=== PATIENT | male | born 1990 | race African-American/Black ===

== ENCOUNTER 2021-11-24 21:05 | Observation (INO) | payer BC, OTHER ==
[~2021-11-24] VITALS: Ht 170.2 cm; Wt 82.3 kg
[2021-11-24] MEDS ORDERED: ONDANSETRON 4MG INJ ONE (21:28)
[2021-11-24] MEDS ORDERED: CEFAZOLIN SODIUM 1 GM VIAL IVP SCH (21:30)
[2021-11-24] MEDS ORDERED: TETANUS/DIPHTHERIA TOXOID [ADULT] 0.5 ML VIAL IM ONE ×2 (21:30→22:30)
[2021-11-24] MEDS ORDERED: MORPHINE 4 MG SYG IVP ONE ×2 (21:30→22:00)
[2021-11-24] MEDS ORDERED: ACETAMINOPHEN WITH CODEINE 1 TAB TAB PO PRN (22:00)
[2021-11-24] MEDS ORDERED: ACETAMINOPHEN 325 MG TAB PO PRN ×2 (22:00)
[2021-11-24] MEDS ORDERED: ONDANSETRON 4MG INJ IV PRN (22:00)
[2021-11-24 22:21] LABS: BASOPHILS % (AUTO) 0.5 % (0.0-5.0); EOSINOPHILS % (AUTO) 1.9 % (0.0-8.0); HEMATOCRIT 46.6 % (42-54); LYMPHOCYTES % (AUTO) 25.7 % (21.0-51.0); MEAN CORPUSCULAR HEMOGLOBIN 27.8 pg (27.0-33.0); MEAN CORPUSCULAR HGB CONC 33.7 g/dL (32.0-36.0); MEAN CORPUSCULAR VOLUME 82.5 fL (79-99); MONOCYTES % (AUTO) 5.4 % (3.0-13.0); PLATELET COUNT (AUTO) 272 K/uL (130-400); RED BLOOD CELL COUNT(AUTO) 5.65 MIL/uL (4.50-6.20); RED CELL DISTRIBUTION WIDTH 13.2 % (11.0-15.5); WHITE BLOOD COUNT (AUTO) 11.8 K/uL (4.8-10.8)
[2021-11-24] MEDS ORDERED: ONDANSETRON 4MG INJ IVP ONE (22:30)
[2021-11-24 22:40] LABS: INR 0.97 (0.85-1.15); PROTHROMBIN TIME 10.6 SEC (9.6-11.6)
[2021-11-24 22:41] LABS: PARTIAL THROMBOPLASTIN TIME 22.8 SEC (26.3-35.5)
[2021-11-24 22:43] LABS: ALBUMIN 4.1 g/dL (3.5-5.0); BILIRUBIN,TOTAL 0.4 mg/dL (0.2-1.0); POTASSIUM 3.3 mmol/L (3.5-5.1)
[2021-11-24 23:12] LABS: CREATININE 1.5 mg/dL (0.5-1.5)
[2021-11-24 23:30] VITALS: BP 105/72
[2021-11-24] MEDS ORDERED: KCL 20 MEQ ERTAB PO ONE (23:30)
[2021-11-24] MEDS: MORPHINE 2 MG SYG IVP PRN (23:49)
[2021-11-25] VITALS (17 sets, daily range): BP systolic 95–122; BP diastolic 50–87
[2021-11-25] MEDS: CEFAZOLIN SODIUM 1 GM VIAL IVP SCH ×3 (04:12→19:34)
[2021-11-25 04:37] LABS: AMPHET/METH SCREEN,URINE NEGATIVE (NEGATIVE); BARBITURATE SCREEN, URINE NEGATIVE (NEGATIVE); BENZODIAZEPINES SCREEN,URINE NEGATIVE (NEGATIVE); CANNABINOID SCREEN,URINE NEGATIVE (NEGATIVE); COCAINE SCREEN,URINE NEGATIVE (NEGATIVE); OPIATE SCREEN,URINE POSITIVE (NEGATIVE); PHENCYCLIDINE SCREEN,URINE NEGATIVE (NEGATIVE)
[2021-11-25] MEDS: MORPHINE 2 MG SYG IVP PRN ×3 (06:37→19:34)
[2021-11-25 06:51] LABS: BASOPHILS % (AUTO) 0.4 % (0.0-5.0); EOSINOPHILS % (AUTO) 2.6 % (0.0-8.0); HEMATOCRIT 45.3 % (42-54); LYMPHOCYTES % (AUTO) 17.4 % (21.0-51.0); MEAN CORPUSCULAR HEMOGLOBIN 27.6 pg (27.0-33.0); MEAN CORPUSCULAR HGB CONC 32.9 g/dL (32.0-36.0); MONOCYTES % (AUTO) 7.5 % (3.0-13.0); NEUTROPHILS % (AUTO) 71.8 % (40.0-77.0); PLATELET COUNT (AUTO) 269 K/uL (130-400); RED BLOOD CELL COUNT(AUTO) 5.39 MIL/uL (4.50-6.20); RED CELL DISTRIBUTION WIDTH 13.4 % (11.0-15.5); WHITE BLOOD COUNT (AUTO) 13.3 K/uL (4.8-10.8)
[2021-11-25 07:13] LABS: ALBUMIN 3.4 g/dL (3.5-5.0); BILIRUBIN,TOTAL 0.3 mg/dL (0.2-1.0); CREATININE 1.5 mg/dL (0.5-1.5); POTASSIUM 4.4 mmol/L (3.5-5.1)
[2021-11-25] MEDS: FAMOTIDINE 20MG TAB PO SCH ×2 (09:22→23:05)
[2021-11-25] MEDS ORDERED: PROPOFOL 10 MG/ML 20ML VIAL IV ONE (12:31)
[2021-11-25] MEDS ORDERED: FENTANYL CITRATE PF 50 MCG/1 ML 2ML VIAL ONE (12:31)
[2021-11-25] MEDS ORDERED: MIDAZOLAM HCL 1 MG/ML 2ML VIAL ONE (12:31)
[2021-11-25] MEDS ORDERED: CEFAZOLIN SODIUM 2 GM VIAL IV ONE (12:48)
[2021-11-25] MEDS ORDERED: MEPERIDINE-PF 25 MG/ML SYG ONE ×2 (14:03→14:20)
[2021-11-25] MEDS ORDERED: KETOROLAC 30MG VIAL (30MG/ML) ONE (14:20)
[2021-11-25] MEDS: ACETAMINOPHEN WITH CODEINE 1 TAB TAB PO PRN (23:29)
[2021-11-26 00:19] VITALS: BP 109/72
[2021-11-26 04:01] VITALS: BP 94/52
[2021-11-26] MEDS: CEFAZOLIN SODIUM 1 GM VIAL IVP SCH ×2 (04:13→09:24)
[2021-11-26 08:00] VITALS: BP 94/62
[2021-11-26] MEDS: FAMOTIDINE 20MG TAB PO SCH (09:18)
[2021-11-26] MEDS: ACETAMINOPHEN WITH CODEINE 1 TAB TAB PO PRN (09:24)
== END 2021-11-26 11:00 | disposition home or self-care (01) ==
LOC: EDH 21:05 → EDHIP 21:45 → 4AH 11-25 00:05
PROVIDERS: ADMIT Hospitalist; ATTEND Hospitalist
DX: S51.811A Laceration without foreign body of right forearm, initial encounter (principal); Z20.822 Contact with and (suspected) exposure to COVID-19; E87.6 Hypokalemia; W17.89XA Other fall from one level to another, initial encounter; Y93.39 Activity, other involving climbing, rappelling and jumping off; Y92.89 Other specified places as the place of occurrence of the external cause; Z23 Encounter for immunization
CPT/HCPCS: 20103; 36415 ×2; 73090; 80053 ×2; 80305; 83735 ×2; 85025 ×2; 85610; 85730; 86850; 86900; 86901; 87040 ×2; 87635; 90471; 90714; 93005; 96374; 96375 ×2; 96376 ×3; 99284; A4606; A6223; A6446; A6450; C9803; G0378 ×35; J0690 ×6; J1885; J2175 ×2; J2250; J2270 ×2; J2405 ×2; J2704; J3010; J7030